=== PATIENT | male | born 2005 | race Caucasian/White ===

== ENCOUNTER 2025-04-21 12:57 | Emergency (ER) | payer MEDICAID, SELFPAY ==
[2025-04-21 13:00] VITALS: PULSE 114; RESP 22; O2SAT 98
--- NOTE | 2025-04-21 13:00 | PC.NURSE ---
Patient to er via ems with c/o full body seizure at home lasting approx. 3 min. patient was face down on floor, trauma noted to right eyebrow, right upper cheek, patient postictal on ems arrival, patient has h/o seizure, not taking medication for sz, currently patient lethargic, postictal, answering quetions appropriately, dry heaving, skin is warm and moist, Dr. olvera evaluated patient in the ambulance bay, new orders received, patient placed in seizure precauttions.
--- NOTE | 2025-04-21 13:05 | XR_ITS ---
Examination: CT brain head without contrast. 2-D sagittal coronal reconstructions Date and time of exam:April 21, 2025, 1409 hours INDICATIONS: Seizure today, ground-level fall, injury to the head, head pain CTDI: vol (mGy):49.2 DLP: (mGycm):1014 Technique: Multiple CT axial sections of the brain have been obtained, 5 mm slice thickness. Contrast has not been administered. 2-D sagittal, coronal reconstructions have been obtained Low dose protocols were performed. One or more of the following dose reduction techniques were used; automated exposure control, adjustment of the mA and/or KV according to patient size, use of iterative reconstruction technique. Findings: No significant ventricular enlargement. Stable appearance of the posterior cerebral falx and vasculature compared with 04/13/2024 Intra-axial or extra-axial hemorrhage density is not seen. No mass effect or midline shift Basal cisterns are not remarkable. Fourth ventricle is midline. Cranial vault intact. Impression: Negative for acute hemorrhage, mass effect or midline shift
[2025-04-21 13:08] VITALS: BMI 25.0
[2025-04-21 13:11] VITALS: BP 124/68; PULSE 76; RESP 25; TEMP 36.6; O2SAT 96
[2025-04-21] MEDS: ONDANSETRON INJ 2 MG/ML INJ 2 ML 4 MG IVP (13:15)
[2025-04-21] MEDS: levETIRAcetam INJ 100 MG/ML VIAL 5ML 1000 MG IVP (13:17)
[2025-04-21 13:22] LABS: Basophils # (Auto) 0.2 Thou/mm3 (0.0-0.2); Basophils % (Auto) 1 % (0-2.5); Eosinophils # (Auto) 0.3 Thou/mm3 (0.0-0.5); Eosinophils % (Auto) 2 % (0-10); Hematocrit 47.5 % (41.0-53.0); Hemoglobin 15.8 g/dL (13.5-16.0); Immature Granulocytes Auto 0.13 Thou/mm3 (0.00-0.00); Lymphocytes # (Auto) 7.0 Thou/mm3 (1.0-4.8); Lymphocytes % (Auto) 45 % (10-50); Mean Corpuscular HGB Conc 33.3 g/dl (31.0-37.0); Mean Corpuscular Hemoglobin 30.6 pg (25.0-35.0); Mean Corpuscular Volume 92 fL (80-100); Monocytes # (Auto) 1.1 Thou/mm3 (0.0-0.8); Monocytes % (Auto) 7 % (0-12); Neutrophils # (Auto) 7.1 Thou/mm3 (1.8-7.7); Neutrophils % (Auto) 45 % (37-80); Nucleated Red Blood Cell # 0.00 Thou/mm3 (0.00-0.00); Nucleated Red Blood Cell % 0 /100 WBC (0); Platelet Count 359 Thou/mm3 (140-440); RDW Standard Deviation 40.5 fL (35.1-43.9); Red Blood Count 5.17 Miln/mm3 (4.50-5.90); White Blood Count 15.8 Thou/mm3 (4.5-11.0)
[2025-04-21 13:56] LABS: Alanine Aminotransferase 10 U/L (10-49); Albumin, Serum 5.4 gm/dL (3.5-5.0); Albumin/Globulin Ratio 2.3 (1.2-2.2); Alkaline Phosphatase 85 U/L (46-116); Anion Gap 26 (7-16); Aspartate Amino Transferase 18 U/L (0-34); BUN/Creatinine Ratio 6 Ratio (12-20); Bilirubin,Total 2.2 mg/dL (0.3-1.2); Blood Urea Nitrogen 8 mg/dL (9-23); Calcium 10.3 mg/dL (8.3-10.6); Calcium (Corrected) 10.3 mg/dL (8.5-10.1); Chloride 105 mMol/L (98-107); Creatinine (Component) 1.4 mg/dL (0.6-1.3); Estimated Creatinine Clearance 78.7 mL/min (>60); Globulin 2.3 gm/dL (2.3-3.5); Glucose 204 mg/dL (74-106); Osmolality,Calculated 287 (275-295); Potassium 3.6 mMol/L (3.4-5.1); Sodium 142 mMol/L (136-145); Total Protein 7.7 gm/dL (5.7-8.2); eGFR > 60 See Note
--- NOTE | 2025-04-21 14:12 | PD.EDSEIZ ---
ED Seizures RME/HPI General Chief Complaint: Seizure Stated Complaint: SEIZURE Time Seen by Provider: 04/21/25 13:00 Arrival date/time: 04/21/25 12:57 Limitations: no limitations RME / HPI RME / HPI Narrative: 20 year old male with no stated medical history presents to the ED BIBA from home for evaluation following a seizure today. Per medics, family on scene reported finding the patient seizing in his room. Described as tonic-clonic and lasting ~1 minute. No seizure activity reported en route to ED and no medications were administered. Related Data Previous Rx's ?Medication ?Instructions ?Recorded acetaminophen 500 mg capsule 1,000 mg (2 x 500 mg) PO Q6H PRN 11/04/21 fever or pain #30 caps cephalexin 500 mg capsule 500 mg PO QID #20 caps 11/04/21 ibuprofen 600 mg tablet 600 mg PO Q8H PRN fever or pain 11/04/21 #30 tabs levetiracetam 500 mg tablet 500 mg PO Q12H #14 tabs 04/21/25 (Keppra) Allergies Allergy/AdvReac Type Severity Reaction Status Date / Time BABY OIL Allergy Unknown Rash Uncoded 04/21/25 13:05 Review of Systems Review of Systems Systems Reviewed: All systems reviewed, normal except as documented Past Medical History Past Medical History NEUROLOGIC: Positive Seizures (not taking medications) CARDIAC: Negative Cardiac Disorders or Congestive Heart Failure RESPIRATORY: Negative Chronic Obstructive Pulmonary Disease (COPD) or Asthma GENITOURINARY: Negative Renal Disease ENDOCRINE: Negative Diabetes Mellitus Type 1 or Diabetes Mellitus Type 2 HEMATOLOGIC: Negative Sickle Cell Disease Social History SMOKING STATUS: Never smoker SUBSTANCE USE: does not use ED Exam General Limitations: Present no limitations General appearance: Present other (acutely ill appearing, appears confused, not following commands, but is protecting his airway) Head Head exam: Present atraumatic Eye Eye exam: Present normal appearance, PERRL and EOMI ENT ENT exam: Present normal exam, normal oropharynx and mucous membranes moist Neck Neck exam: Present normal inspection, full ROM and trachea midline Chest Chest inspection: Present normal inspection and symmetric chest wall rise Respiratory Respiratory exam: Present normal lung sounds bilaterally Cardiovascular Cardiovascular exam: Present regular rate, normal rhythm and normal heart sounds Abdominal Exam Abdominal exam: Present soft; Absent distention, tenderness, guarding or rebound Back Exam Back exam: Present normal inspection and full ROM Neurological Exam Neurological exam: Present other (mild contracture of the upper extremities, nonverbal ) Psychiatric Psychiatric exam: Present normal affect and normal mood Skin Skin exam: Present warm, dry, intact and normal color Course Quality Measures none Orders Category Date Time Status CT head/brain wo con Stat Exams 04/21/25 13:05 Completed CBC Stat Lab 04/21/25 13:15 Completed CMP [Comprehensive Metabolic Panel] Stat Lab 04/21/25 13:15 Completed CMP [Comprehensive Metabolic Panel] Stat Lab 04/21/25 14:57 Completed Drug Screen,Urine Stat Lab 04/21/25 16:15 Completed Path Review Blood Smear Stat Lab 04/21/25 13:15 Completed UA, C/S IF [Urinalysis, C/S if Indicated] Stat Lab 04/21/25 16:15 Completed VBG [Venous Blood Gas] Stat Lab 04/21/25 14:57 Completed Ondansetron Inj [Zofran Inj] Med 04/21/25 13:05 Discontinued 4 mg IVP X1 ONE Ringers Lactated 1000 ml [Lactated Ringers] 1,000 ml Med 04/21/25 14:39 Discontinued IV 999 mls/hr levETIRAcetam INJ [Keppra Inj] Med 04/21/25 13:00 Discontinued 1,000 mg IVP X1 ONE Vital Signs Vital signs: Vital Signs Temperature 97.8 F 04/21/25 13:11 Pulse Rate 76 04/21/25 13:11 Respiratory Rate 25 H 04/21/25 13:11 Blood Pressure 124/68 04/21/25 13:11 Pulse Oximetry (%) 96 04/21/25 13:11 Oxygen Delivery Method Room Air 04/21/25 13:11 Pulse ox is 96% on room air which is adequate. Seizure MDM Narrative MDM Narrative:: Patient is a 20-year-old male with medical history notable for prior seizures in the emergency ferment after having had a seizure earlier today. Vital signs and exam as listed. Concern for breakthrough seizure, metabolic disturbance, intracranial hemorrhage among others. Ordered medication for management of seizures, as well as antiemetic medication. CT brain given patient with signs of trauma on his face. Patient without any neck pain, was moving his neck without any difficulties no focal neurodeficits. also ordered labs. Labs with evidence of leukocytosis 15.8, no left shift. Hemoglobin is normal. Patient with bicarb of 10.7 anion gap of 26 creatinine of 1.4. Normal sodium potassium and chloride. Patient with an anion gap acidosis likely secondary to patient's seizure. Provided fluid resuscitation. T. bili 2.2, no other transaminitis. Head CT without any acute abnormalities. Drug screen positive for marijuana. Repeat metabolic panel 2:00p I updated patient and girlfriend at bedside. Patient now back at his neurologic baseline, GCS 15, moving all extremities, moving all extremities. 3:08p I spoke with neurologist Dr. Vaughan. Advised patient not to drive and send home with 500mg Keppra BID. Additionally recommends patient follow up with PCP for referral to see her in her office. Patient updated on plan and is in agreement. Will DC home. Patient data External records reviewed:: [facility] previous records and EMS form Clinical information provided by:: EMS Social determinants that could affect healthcare access:: none Patient has the following chronic illnesses:: None reported How is presenting disease/condition affected by chronic disease/condition?: no chronic disease Evaluation data The following diagnostics were reviewed and interpreted by me:: lab results and radiology exam(s) Lab and/or radiology exams considered but not ordered:: None Interpretation Summary: See [facility] Medications / Prescriptions Medications or Prescriptions considered but not ordered:: None Medication administrations:: Medication Administration History Discontinued Medications Lactated Ringer's (Lactated Ringers) 1,000 mls @ 999 mls/hr IV .Q1H1M ONE Stop: 04/21/25 15:39 Last Infusion: 04/21/25 15:45 Dose: Infused Documented By: JEAN PIERRE Admin: 04/21/25 14:44 Dose: 999 mls/hr Documented By: ARIANNA Levetiracetam (Levetiracetam Inj 100 Mg/Ml Vial 5ml) 1,000 mg IVP X1 ONE Stop: 04/21/25 13:01 Last Admin: 04/21/25 13:17 Dose: 1,000 mg Documented By: JEAN PIERRE Ondansetron HCl (Ondansetron Inj 2 Mg/Ml Inj 2 Ml) 4 mg IVP X1 ONE; Protocol Stop: 04/21/25 13:06 Last Admin: 04/21/25 13:15 Dose: 4 mg Documented By: JEAN PIERRE See above Consultations Consultation(s) initiated? (list below): Yes Consultation #1 (Physician, Specialty, Details): See MDM Diagnosis Seizure Differential Diagnosis: other (See MDM) Most likely diagnosis given after review of the tests above:: Epileptic seizure Admission Indicated Admission indicated?: not indicated Admission Request Was there a request for admission?: No Disposition Plan Disposition Plan: Discharge Discharge Attestation Discharge Attestation: The patient and all family members were given an opportunity to ask questions and understood the discharge instructions. Discharge instructions specifically effects, indications for sooner follow up or return to the emergency department, and the expected course of current diagnosis. Patient condition: Stable Critical Care Time Critical Care Time Critical Care Time: Yes Total Critical Care Time (min.): 36 Attestation: Due to a high probability of clinically significant, life threatening deterioration, the patient required my highest level of preparedness to intervene emergently and I personally spent this critical care time directly and personally managing the patient. This critical care time included obtaining a history; examining the patient; pulse oximetry; ordering and review of studies; arranging urgent treatment with development of a management plan; evaluation of patient's response to treatment; frequent reassessment; and, discussions with other providers. This critical care time was performed to assess and manage the high probability of imminent, life-threatening deterioration that could result in multi-organ failure. It was exclusive of separately billable procedures and treating other patients and teaching time. Please see MDM section and the rest of the note for further information on patient assessment and treatment. Discharge Plan Plan Patient Disposition: HOME (Self Care) Prescriptions/Referrals Prescriptions/Med Rec: New levetiracetam [Keppra] 500 mg tablet 500 mg PO Q12H Qty: 14 0RF No Action cephalexin 500 mg capsule 500 mg PO QID Qty: 20 0RF ibuprofen 600 mg tablet 600 mg PO Q8H PRN (Reason: fever or pain) Qty: 30 0RF acetaminophen 500 mg capsule 1,000 mg PO Q6H PRN (Reason: fever or pain) Qty: 30 0RF Referrals: No Primary/Family,Physician [Primary Care Provider] - In 1 week Problem List Clinical Impression: Epileptic seizure Impression comment: Please follow-up with your primary care doctor within 1 to 2 days. Please request an appointment to see Dr. Vaughan in her clinic this week. [address] [place] [id number] Please avoid bright lights. It is important that you sleep well, eat a balanced diet. Please do not operate any heavy machinery or drive until cleared by your neurologist. Patient/Caregiver Discharge Instructions Print Language: Ghanaian Stand Alone Forms: [employer] Award Info., Patient Portal Info Letter
[2025-04-21 14:15] LABS: Carbon Dioxide 10.7 mMol/L (20.0-31.0)
[2025-04-21] MEDS: RINGERS LACTATED 1000 ML 1,000 ML 999 ML IV (14:44)
[2025-04-21 14:55] VITALS: BP 118/53; PULSE 76; RESP 19; TEMP 35.9; O2SAT 98
[2025-04-21 15:03] LABS: Base Excess, Venous -3 (-3-3); O2 Saturation, Venous 81 % (96-97); PCO2, Venous 44 mmHg (36-56); PO2, Venous 46 mmHg (15-58); pH, Venous 7.33 (7.33-7.66)
--- NOTE | 2025-04-21 15:10 | PC.NURSE ---
Dr. Hemphill at bedside speaking with patient, girlfriend regarding results and plan of care, patient has urinal and aware of need of urine sample.
--- NOTE | 2025-04-21 15:11 | PC.NURSE ---
Patient had a fall forward while having a seizure. Patient not on blood thinners and denies head and neck pain,
[2025-04-21 15:19] LABS: Path Review Blood Smear Sent to Pathologist
[2025-04-21 16:20] LABS: Collection Type, Urine Clean Catch; Squamous Epithelial Cell,Urine 0 /hpf (0-5)
[2025-04-21 16:27] LABS: Bilirubin,Urine Negative (Negative); Blood,Urine Negative (Negative); Clarity,Urine Clear (Clear/Hazy); Color,Urine Lt-Yellow (Lt Yel-Yel); Culture Indicated,Urine Not Indicated; Glucose, Urine Negative (Negative); Hyaline Casts,Urine < 1 /hpf (0-1); Ketones,Urine 1+ (Negative); Leukocyte Esterase,Urine Negative (Negative); Nitrite,Urine Negative (Negative); PH,Urine 5.5 (5.0-7.0); Protein,Urine Trace (Neg - Trace); RBC,Urine 4 /hpf (0-3); Specific Gravity,Urine 1.018 (1.001-1.035); Urobilinogen,Urine Negative mg/dL (0.0-1.0); WBC,Urine 1 /hpf (0-5)
[2025-04-21 16:30] LABS: Alanine Aminotransferase 8 U/L (10-49); Albumin, Serum 4.5 gm/dL (3.5-5.0); Albumin/Globulin Ratio 2.4 (1.2-2.2); Alkaline Phosphatase 69 U/L (46-116); Anion Gap 11 (7-16); Aspartate Amino Transferase 13 U/L (0-34); BUN/Creatinine Ratio 9 Ratio (12-20); Bilirubin,Total 1.7 mg/dL (0.3-1.2); Blood Urea Nitrogen 9 mg/dL (9-23); Calcium 9.9 mg/dL (8.3-10.6); Calcium (Corrected) 9.9 mg/dL (8.5-10.1); Carbon Dioxide 23.2 mMol/L (20.0-31.0); Chloride 110 mMol/L (98-107); Creatinine (Component) 1.0 mg/dL (0.6-1.3); Estimated Creatinine Clearance 110.2 mL/min (>60); Globulin 1.9 gm/dL (2.3-3.5); Glucose 66 mg/dL (74-106); Osmolality,Calculated 283 (275-295); Potassium 3.9 mMol/L (3.4-5.1); Sodium 144 mMol/L (136-145); Total Protein 6.4 gm/dL (5.7-8.2); eGFR > 60 See Note
[2025-04-21 16:36] VITALS: BP 109/77; PULSE 68; RESP 19; TEMP 36.2; O2SAT 97
[2025-04-21 16:42] LABS: Amphetamine/Methamp Scrn,U Negative (Negative); Barbiturate Screen,Urine Negative (Negative); Benzodiazepines Screen,Urine Negative (Negative); Benzoylecgonine Screen, Ur Negative (Negative); Fentanyl Screen,Urine Negative (Negative); Opiate Screen,Urine Negative (Negative); THC Screen,Urine Positive (Negative)
--- NOTE | 2025-04-21 16:52 | PC.NURSE ---
Mailed and faxed Confidential morbidity report
[2025-04-21 18:00] VITALS: BP 118/71; PULSE 70; RESP 18; TEMP 36.6; O2SAT 98
== END 2025-04-21 18:14 | disposition home or self-care (01) ==
PROVIDERS: Emergency Provider Emergency Medicine
DX: G40.909 Epilepsy, unspecified, not intractable, without status epilepticus (principal)
CPT/HCPCS: 36415; 70450; 80053; 80307; 81001; 82803; 85025; 99284; J1953; J2405; J7120

== ENCOUNTER → 2025-07-13 | Outpatient (CLI) | payer MEDICAID, SELFPAY ==
--- NOTE | 2025-07-13 11:38 | XR_ITS ---
EXAMINATION: PA lateral chest 2 views Date and time: July 13, 2025, 12:45 p.m. INDICATIONS: Chest pain 1 week. FINDINGS: Normal heart size Lungs are clear. Thoracic dextroscoliosis 12 degrees IMPRESSION: No pneumonia identified
== END | disposition home or self-care (01) ==
LOC: CDIM 11:34
DX: R07.89 Other chest pain (principal)
CPT/HCPCS: 71046